=== PATIENT | male | born 1975 | race Caucasian/White ===

== ENCOUNTER 2025-03-07 15:12 | Outpatient (REF) | payer OTHER, SELFPAY ==
--- OUTSIDE RECORDS SUMMARY | 2025-03-07 15:27 | XMS_ITS | Clinical Summary ---
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 Active Multiple Vitamin tabletIndication s:Routine medical exam Take 1 tablet by mouth daily. Active albuterol (PROVENTIL HFA; VENTOLIN HFA) 108 (90 Base) MCG/ACT inhalerIndicatio ns:Encounter to establish care with new doctor,Chronic obstructive pulmonary disease, unspecified COPD type (HCC),Routine medical exam Inhale 2 puffs 4 times daily (every 6 hours) as needed for wheezing. 1 each 3 09/14/2021 Active fluticasone-hai nterol (BREO ELLIPTA) 200-25 mcg/inh inhalerIndicatio ns:Encounter to establish care with new doctor,Chronic obstructive pulmonary disease, unspecified COPD type (HCC),Routine medical exam Inhale 1 puff daily. 60 each 1 09/14/2021 Active traZODone (DESYREL) 50 MG tabletIndication s:Encounter to establish care with new doctor,Insomnia, unspecified type,Routine medical exam Take 1 tablet (50 mg total) by mouth nightly. 90 tablet 1 09/14/2021 Active magnesium oxide 200 MG tabletIndication s:Encounter to establish care with new doctor,Leg cramps,Routine medical exam Take 1 tablet (200 mg total) by mouth 2 (two) times a day. Take 2 hours apart from other medications ; take with food 90 tablet 09/14/2021 Active Family History Medical History Relation Name Comments Diabetes type II Father Lower Back Pain Father Ponce's esophagus Mother Stroke Mother Lower Back Pain Sister Relation Name Status Comments Father Maternal Grandfather Maternal Grandmother Mother Paternal Grandfather Paternal Grandmother Sister Social History Tobacco Use Types Packs/Day Years Used Date Smoking Tobacco: Former Smokeless Tobacco: Never Alcohol Use Standard Drinks/Week Comments Yes 1 (1 standard drink = 0.6 oz pur e alcohol) vodka everyday PHQ-2 Answer Date Recorded PHQ-2 Total Score 5 09/14/2021 Sex and Gender Information Value Date Recorded Sex Assigned at Not on file Legal Sex Male 11:09 PM EDT Gender Identity Not on file Sexual Orientation Not on file Last Filed Vital Signs Vital Sign Reading Time Taken Comments Blood Pressure 153/100 09/14/2021 10:21 AM EDT Pulse 90 09/14/2021 10:21 AM EDT Temperature 36.7 C (98 F) 09/14/2021 10:21 AM EDT Respiratory Rate 18 09/14/2021 10:21 AM EDT Oxygen Saturation 97% 09/14/2021 10:21 AM EDT Inhaled Oxygen Concentration - - Weight 111 kg (245 lb) 09/14/2021 10:21 AM EDT Height 185.4 cm (6' 1 ) 09/14/2021 10:21 AM EDT Body Mass Index 32.32 09/14/2021 10:21 AM EDT Plan of Treatment Health Maintenance Due Date Last Done Comments Hepatitis C Virus Screening 1975 HIV Screening 07/15/1988 DTaP/Tdap/Td Vaccines (1 - Tdap) 07/15/1994 Hepatitis B Vaccines (1 of 3 - 19+ 3-dose series) 07/15/1994 COVID-19 Vaccine ( - 2024-2 6 season) 2025 05/10/2021, 08/26/2020, 08/05/2020 Pneumococcal Vaccine: Pediatric (0-5 Years) and At-Risk Patients (6 to 49 Years) Aged Out No longer eligible b ased on patient's age to complete this topic Insurance [employer] COVID-19 BENEFITS ONLY Care Teams Home Sales Consultant Relationship Specialty Start Date End Date Dinesh Blackburn MD [address] [place] [id number] PCP - General Internal Medicine 09/14/21
[2025-03-07 15:34] LABS: Hematocrit 35.5 % (42.0-52.0); Hemoglobin 12.3 g/dl (14.0-18.0); Imm Gran Abs Auto 0.00 X10*3/uL (0.00-0.03); Imm Gran Pct Auto 0.0 % (0.0-0.4); Lymphocytes Absolute Auto 1.0 X10*3/uL (1.2-4.9); MANUAL DIFF FLAG SCAN; Mean Corpuscular HGB Conc 34.6 g/dl (31.0-36.0); Mean Corpuscular Hemoglobin 36.2 pg (27.0-33.0); Mean Corpuscular Volume 104.4 fL (80.0-98.0); NRBC Abs Auto 0.000 X10*3/uL (0.0-0.012); NRBC Pct Auto 0.0 /100WBC (0.0-0.2); Platelet Count 160 X10*3/uL (160-400); Red Blood Count 3.40 X10*6/uL (4.60-5.80); SCAN SMEAR FLAG 1; White Blood Count 4.9 X10*3/uL (4.8-10.8)
[2025-03-07 15:47] LABS: INTERNATIONAL NORM RATIO 1.3 (0.9-1.1); Prothrombin Time 15.0 SEC (10.9-12.4)
[2025-03-07 15:55] LABS: Alanine Aminotransferase 117 U/L (0-40); Albumin Level 3.5 g/dL (3.5-5.0); Alkaline Phosphatase 264 U/L (39-117); Anion Gap 11 (12-20); Aspartate Amino Transferase 246 U/L (5-37); Blood Urea Nitrogen 8 mg/dL (9-16); Calcium 8.9 mg/dL (8.4-10.2); Carbon Dioxide 26 mmol/L (22-29); Chloride 102 mmol/L (96-108); Cholesterol 289 mg/dL (<200); Estimated Glomerular Filt Rate > 60; HDL Cholesterol 13 mg/dL (>40); Potassium 4.2 mmol/L (3.3-5.1); Sodium 135 mmol/L (135-145); Total Protein 7.1 g/dL (6.5-8.0); Triglycerides 300 mg/dL (<150)
== END 2025-03-07 15:13 | disposition home or self-care (01) ==
LOC: HO.LAB 15:12
PROVIDERS: Visit Provider Psychiatry & Neurology Psychiatry
DX: K74.60 Unspecified cirrhosis of liver (principal); K70.10 Alcoholic hepatitis without ascites; E83.42 Hypomagnesemia; D69.6 Thrombocytopenia, unspecified; K29.20 Alcoholic gastritis without bleeding; F10.20 Alcohol dependence, uncomplicated; Z72.0 Tobacco use
CPT/HCPCS: 36415; 80053; 80061; 82565; 84450; 84460; 84520; 85025; 85610